=== PATIENT | female | born 1970 | race American Indian/Alaskan Native ===

== ENCOUNTER 2017-02-25 15:29 | Emergency (ER) | payer OTHER ==
[2017-02-25 15:42] VITALS: BP 169/83
--- NOTE | 2017-02-25 15:44 | Emergency Department Report ---
Chief Complaint: Medical Clearance Stated Complaint: ABNORMAL LABS Time Seen by Provider: 02/25/17 15:43 - HPI History of Present Illness: Patient is a 46 y/o female who presents due to lab recheck. Patient was seen for breast pain in 2 days ago. - ROS Review of Systems: NO FEVER, NO CHILLS, NO PAIN - Exam Vital Signs: Vital Signs 02/25/17 15:40 Temperature 98.2 F Pulse Rate 69 Respiratory 18 Rate Blood Pressure 169/83 O2 Sat by Pulse 100 Oximetry Physical Exam: ALERT AND ORIENTED X 3 MSE screening note: Focused history and physical exam performed. Due to findings the following was ordered: ED Disposition for MSE Condition: Stable
--- NOTE | 2017-02-25 17:52 | Emergency Department Report ---
ED Recheck HPI - General Chief Complaint: Medical Clearance Stated Complaint: ABNORMAL LABS Time Seen by Provider: 02/25/17 17:03 Source: patient Mode of arrival: Ambulatory Limitations: No Limitations - History of Present Illness Initial Comments: 46-year-old female presents for lab recheck. Patient seen 2 days ago in the ED and had mildly positive hCG on lab work. Patient presents for repeat hCG level. Last menstrual period approximately 1 month ago. Patient is sexually active but has history of tubal ligation and partial hysterectomy 2002. Patient complaining of chronic right breast pain for several months. Patient is currently seeking follow-up with an outpatient breast specialist/primary care /[facility]. Denies fever chills breast discharge nipple discharge and/or changes in skin tone. MD Complaint: abnormal lab Onset/Timin -: days(s) - Related Data Home Medications Medication Instructions Recorded Confirmed Last Taken ALBUTEROL Inhaler [Proair] 2 puff IH QID PRN 02/22/17 02/22/17 Unknown Atorvastatin Calcium [Lipitor] 20 mg PO DAILY 02/22/17 02/22/17 1 Day Ago Celecoxib [Celebrex] 400 mg PO PRN PRN 02/22/17 02/22/17 Unknown Ibuprofen 600 mg PO PRN PRN 02/22/17 02/22/17 Unknown Lisinopril/Hydrochlorothiazide 1 tab PO QDAY 02/22/17 02/22/17 1 Day Ago [Zestoretic 20-25 mg] Naproxen 500 mg PO PRN PRN 02/22/17 02/22/17 1 Day Ago Oxycodone HCl/Acetaminophen 10 - 325 mg PO PRN PRN 02/22/17 02/22/17 Unknown [Percocet 10/325 mg] metFORMIN [Glucophage] 500 mg PO BID 02/22/17 02/22/17 1 Day Ago Previous Rx's Medication Instructions Recorded Last Taken Type Naproxen 500 mg PO BID PRN #30 tablet 02/23/17 Unknown Rx Allergies Allergy/AdvReac Type Severity Reaction Status Date / Time No Known Allergies Allergy Unverified 02/22/17 18:09 ED Review of Systems ROS: Stated complaint: ABNORMAL LABS Other details as noted in HPI Constitutional: denies: chills, fever Eyes: denies: eye pain, eye discharge, vision change ENT: denies: ear pain, throat pain Respiratory: denies: cough, shortness of breath, wheezing Cardiovascular: denies: chest pain, palpitations Endocrine: no symptoms reported Gastrointestinal: denies: abdominal pain, nausea, diarrhea Genitourinary: denies: urgency, dysuria, discharge Musculoskeletal: denies: back pain, joint swelling, arthralgia Skin: denies: rash, lesions Neurological: denies: headache, weakness, paresthesias Psychiatric: denies: anxiety, depression Hematological/Lymphatic: denies: easy bleeding, easy bruising ED Past Medical Hx - Past Medical History Hx Hypertension: Yes Hx Diabetes: Yes - Surgical History Hx Cholecystectomy: Yes Hx Appendectomy: Yes Additional Surgical History: Partial hysterectomy, cholecystectomy, X 3 - Social History Smoking Status: Never Smoker Substance Use Type: None - Medications Home Medications: Home Medications Medication Instructions Recorded Confirmed Last Taken Type ALBUTEROL Inhaler [Proair] 2 puff IH QID PRN 02/22/17 02/22/17 Unknown History Atorvastatin Calcium [Lipitor] 20 mg PO DAILY 02/22/17 02/22/17 1 Day Ago History Celecoxib [Celebrex] 400 mg PO PRN PRN 02/22/17 02/22/17 Unknown History Ibuprofen 600 mg PO PRN PRN 02/22/17 02/22/17 Unknown History Lisinopril/Hydrochlorothiazide 1 tab PO QDAY 02/22/17 02/22/17 1 Day Ago History [Zestoretic 20-25 mg] Naproxen 500 mg PO PRN PRN 02/22/17 02/22/17 1 Day Ago History Oxycodone HCl/Acetaminophen 10 - 325 mg PO PRN PRN 02/22/17 02/22/17 Unknown History [Percocet 10/325 mg] metFORMIN [Glucophage] 500 mg PO BID 02/22/17 02/22/17 1 Day Ago History Naproxen 500 mg PO BID PRN #30 tablet 02/23/17 Unknown Rx ED Physical Exam - General Limitations: No Limitations General appearance: alert, in no apparent distress - Head Head exam: Present: atraumatic, normocephalic - Eye Eye exam: Present: normal appearance, PERRL, EOMI - ENT ENT exam: Present: mucous membranes moist - Neck Neck exam: Present: normal inspection - Respiratory Respiratory exam: Present: normal lung sounds bilaterally. Absent: respiratory distress - Cardiovascular Cardiovascular Exam: Present: regular rate, normal rhythm. Absent: systolic murmur, diastolic murmur, rubs, gallop - GI/Abdominal GI/Abdominal exam: Present: soft, normal bowel sounds - Extremities Exam Extremities exam: Present: normal inspection - Back Exam Back exam: Present: normal inspection - Neurological Exam Neurological exam: Present: alert, oriented X3 - Psychiatric Psychiatric exam: Present: normal affect, normal mood - Skin Skin exam: Present: warm, dry, intact, normal color. Absent: rash ED Course Vital Signs 02/25/17 15:40 Temperature 98.2 F Pulse Rate 69 Respiratory 18 Rate Blood Pressure 169/83 O2 Sat by Pulse 100 Oximetry ED Recheck MDM - Differential Diagnosis Recheck of Abnormal Lab - Medical Decision Making A/P: chronic right breast pain, lab recheck 1-as per lab timmy, pt has NEGATIVE HCG level per hcg range 2-f/u with primary care, outpt obgyn and outpt breast clinic. pt given multiple referrals, states she has appointment for mammogram on 03/06/17. [email or web address] 3-no clinical signs of over breast mass, abscess or celluliitis/mastitis on clinical exam Critical care attestation.: If time is entered above; I have spent that time in minutes in the direct care of this critically ill patient, excluding procedure time. ED Disposition Clinical Impression: test negative, Breast pain, right Disposition: [id number] TO HOME OR SELFCARE Is pt being admited?: No Does the pt Need Aspirin: No Condition: Stable Instructions: Breast Self-exam (ED), Mammogram (ED) Referrals: [facility] [Outside] - 3-5 Days Time of Disposition: 17:49
== END 2017-02-25 17:55 | disposition home or self-care (01) ==
LOC: ED 15:29
DX: N64.4 Mastodynia (principal); I10 Essential (primary) hypertension; E11.9 Type 2 diabetes mellitus without complications
CPT/HCPCS: 36415; 84702; 99283